=== PATIENT | male | born 1965 | race Caucasian/White ===

== ENCOUNTER → 2020-03-13 07:38 | Outpatient (CLI) | payer OTHER, SELFPAY ==
--- NOTE | 2020-03-13 | DI.MRI.S_ITS ---
PROCEDURE: MR SHOULDER RT WO CON INDICATIONS: Pain in right shoulder TECHNIQUE: Noncontrast oblique coronal T2 fast spin echo with fat saturation, oblique sagittal T1 spin echo and T2 fast spin echo with fat saturation, axial T1 spin echo and T2 fast spin echo with fat saturation through the shoulder. COMPARISON: None. FINDINGS: Image quality: Excellent. Rotator cuff: There is high-grade partial-thickness to full-thickness rupture involving anterior to mid fibers of distal supraspinatus at its insertion on the humeral head with up to 3 centimeter medial retraction of torn tendon fibers to the level of acromioclavicular joint. Most anterior fibers of distal supraspinatus and mid to posterior fibers of distal supraspinatus show low-grade articular surface partial-thickness tear. Distal infraspinatus tendinosis is seen. Distal subscapularis tendinosis and low-grade intrasubstance partial-thickness tear is also noted. Sagittal images demonstrate moderate supraspinatus muscle atrophy. Bones and bursae: No bone marrow contusions or fractures. Moderate acromioclavicular joint osteoarthritic changes are seen with downward osteophyte formation depressing the musculotendinous junction of supraspinatus.. There is moderate amount of subacromial subdeltoid bursal fluid. No gross intra-articular loose body. Capsule and soft tissues: In the absence of intra-articular contrast, focal area of signal abnormality and contour irregularity involving superior labrum at 12 o'clock position is seen suggestive of focal superior labral tear. The glenohumeral ligaments appear intact. The long head of the biceps tendinosis and moderate grade intrasubstance partial-thickness tear is seen. The rotator interval appears normal, without fibrosis. The coracohumeral ligament is normal in thickness. IMPRESSION: 1. Tendinosis and low to moderate grade articular surface partial thickness tear involving distal supraspinatus with suggestion of high-grade partial-thickness to full-thickness rupture involving anterior to mid fibers of distal supraspinatus at its insertion on the humeral head with up to 3 cm medial retraction of torn tendon fibers to the level of acromioclavicular joint. Moderate supraspinatus muscle atrophy. 2. Distal infraspinatus tendinosis. Distal subscapularis tendinosis and low-grade intrasubstance partial-thickness tear. Tendinosis and moderate grade partial-thickness tear involving proximal intra-articular portion of long head of biceps. 3. Moderate acromioclavicular joint osteoarthritis. 4. Suggestion of focal superior labral tear at 12 o'clock position. Dictated by: Rafat Griffin M.D. on 03/13/2020 at 9:44 Approved by: Rafat Griffin M.D. on 03/13/2020 at 9:48
== END ==
PROVIDERS: PCP Family Medicine; Referring Provider Family Medicine; Visit Provider Family Medicine
DX: M25.511 Pain in right shoulder (principal); M75.111 Incomplete rotator cuff tear or rupture of right shoulder, not specified as traumatic; M19.011 Primary osteoarthritis, right shoulder
CPT/HCPCS: 73221

== ENCOUNTER → 2020-10-24 15:36 | Outpatient (CLI) | payer OTHER, SELFPAY ==
--- NOTE | 2020-10-24 | DI.MRI.S_ITS ---
PROCEDURE: MR SHOULDER RT WO CON INDICATIONS: strain of muscle and tendon. Continued right bicep and tricep pain post injury TECHNIQUE: Noncontrast oblique coronal T2 fast spin echo with fat saturation, oblique sagittal T1 spin echo and T2 fast spin echo with fat saturation, axial T1 spin echo and T2 fast spin echo with fat saturation through the shoulder. COMPARISON: [facility] [place], CR, XR SHOULDER 2+ VIEWS RIGHT, 07/19/2020, 13:50. [facility], MR, MR SHOULDER RT WO CON, 03/13/2020, 7:58. FINDINGS: Image quality: Excellent. Rotator cuff: There is full-thickness tear of the supraspinatus tendon. There is mild tendon retraction and mild supraspinatus muscle atrophy. There is partial-thickness tear of the infraspinatus and subscapularis tendons. Sagittal images demonstrate no infraspinatus or subscapularis muscle atrophy. Bones and bursae: No bone marrow contusions or fractures. Moderate acromioclavicular and glenohumeral joint degeneration. The acromion demonstrates conventional anatomy, without an os acromiale. No pathologic subacromial-subdeltoid or subcoracoid bursal fluid is present. Capsule and soft tissues: In the absence of intra-articular contrast, there is degenerative fraying of the glenoid labrum. The long head of the biceps tendon demonstrates normal location and morphology. There is fluid within the tendon sheath of the long head of the biceps tendon consistent with tenosynovitis. The rotator interval appears normal, without fibrosis. The coracohumeral ligament is normal in thickness. IMPRESSION: 1. Full-thickness tear of the supraspinatus tendon. There is mild tendon retraction and mild supraspinatus muscle atrophy. 2. Partial-thickness tear of the infraspinatus and subscapularis tendons. 3. Moderate acromioclavicular and glenohumeral joint degeneration. 4. Degenerative fraying of the glenoid labrum. 5. Tenosynovitis of the long head of the biceps tendon. Dictated by: Sergio Evans M.D. on 10/24/2020 at 17:11 Approved by: Sergio Evans M.D. on 10/24/2020 at 17:29
== END ==
PROVIDERS: PCP Family Medicine; Referring Provider Orthopaedic Surgery; Visit Provider Orthopaedic Surgery
DX: S46.011A Strain of muscle(s) and tendon(s) of the rotator cuff of right shoulder, initial encounter (principal); M19.011 Primary osteoarthritis, right shoulder; M65.821 Other synovitis and tenosynovitis, right upper arm; X58.XXXA Exposure to other specified factors, initial encounter
CPT/HCPCS: 73221

== ENCOUNTER → 2020-12-16 09:01 | Outpatient (CLI) | payer OTHER, SELFPAY ==
[2020-12-16 12:09] LABS: COVID19 -Nasal RAPID Negative (Negative)
== END ==
PROVIDERS: PCP Family Medicine; Visit Provider Physician Assistant
DX: Z01.812 Encounter for preprocedural laboratory examination (principal); Z20.822 Contact with and (suspected) exposure to COVID-19
CPT/HCPCS: 87635

== ENCOUNTER 2020-12-18 06:13 | Day surgery (SDC) | payer OTHER, SELFPAY ==
[2020-12-14 10:56] VITALS: BMI 37.4
[2020-12-18] VITALS (9 sets, daily range): BP systolic 131–164; BP diastolic 55–95; PULSE 52–66; RESP 12–14; TEMP 36.2–37.2; O2SAT 92–98; BMI 37.4
[2020-12-18] MEDS: LACTATED RINGERS 1,000 ML 42 ML IV (06:53)
--- NOTE | 2020-12-18 07:18 | P.HP_ITS ---
History of Present Illness History of Present Illness Date Patient Seen: 12/18/20 Time Patient Seen: 07:18 Chief complaint: RIGHT SHOULDER Narrative: The patient is a 55 year old gentleman with right shoulder pain and an MRI that confirms a rotator cuff tear with some retraction and atrophy. This is an interim history and physical exam as the prior H and P was completed on November 02. The patient confirms he has had no changes in his health status. Please refer to the prior history and physical for details. Patient History Medical History HLD (hyperlipidemia) HTN (hypertension) Surgical History (Updated 12/18/20 @ 07:21 by Andrea Kaminski MD) H/O vasectomy Hx of appendectomy Family & Social History Family History (Updated 12/18/20 @ 07:22 by Andrea Kaminski MD) Other COPD (chronic obstructive pulmonary disease) Diabetes mellitus Social History: household members family Tobacco & Substance use: Smoking Status Never smoker alcohol intake frequency a few times a week Substance Use Type does not use Meds Home Medications and Allergies Home Medications Medication Instructions Recorded Confirmed Type lisinopril [Zestril] 10 mg PO QDAY #0 06/14/11 12/18/20 History simvastatin [Zocor] 20 mg PO HS #0 06/14/11 12/18/20 History Allergies Allergy/AdvReac Type Severity Reaction Status Date / Time No Known Drug Allergies Allergy Verified 12/18/20 06:42 Review of Systems Review of Systems ROS: Yes All systems reviewed with the patient and are negative except as otherwise documented Exam Vital Signs (past 8 hours): - 12/18/20 06:45 Temperature 99 F Pulse Rate 66 Respiratory Rate 13 Blood Pressure 164/95 H Pulse Oximetry 98 Oxygen Delivery Method Room Air Narrative Exam Narrative: The patient is lying comfortably in his gurney. The right upper extremity shows no skin lesions that would prevent surgery. The remainder of the physical exam is as per his prior history and physical note. Assessment & Plan Assessment & Plan narrative: Right rotator cuff tear of moderate chronicity and size which also may involve some biceps instability. He has given his consent for arthroscopic rotator cuff repair, biceps tenodesis and subacromial d ecompression is indicated. Risks benefits and alternatives of surgery were reviewed with him in the preoperative area to remind him of the discussion that was had previously in the office.
[2020-12-18] MEDS: CELECOXIB 200 MG CAPSULE 400 MG PO (07:33)
[2020-12-18] MEDS: ACETAMINOPHEN 325 MG TABLET 975 MG PO (07:34)
[2020-12-18] MEDS: GABAPENTIN 300 MG CAPSULE PO (07:34)
--- NOTE | 2020-12-18 07:43 | SUR.PREOP ---
to bedside with Dr Spears for nerve block
--- NOTE | 2020-12-18 07:47 | SUR.PREOP ---
Time out verified with Dr Prachi Spears. Pt AOx4.
--- NOTE | 2020-12-18 08:18 | PM.PROC.1 ---
Procedures Date/Time Date of procedure: 12/18/20 Time of procedure: 07:51 Nerve Block Time out performed: Yes Nerve blocks: brachial plexus (intrascalene) Procedure successful: Yes Patient tolerated procedure: well and no complications Complications: none Additional comments: Intrascalene block performed for post-op pain control at surgeon request. Patient was positioned with IV, O2, monitors and rescue meds available. Prepped and timeout performed. Target identified with continuous ultrasound guidance. 15 mL of bupivicaine 0.5% was injected perineurally with intermittent aspiration and injection. No blood, no paresthesias, no acute complications.
--- NOTE | 2020-12-18 08:30 | SUR.OPER ---
Lateral on padded OR bed with archuleta bag positioner, head on pillow, gel axillary roll in place, bottom leg bent with gel pad under knee to foot, upper leg straight and supported with pillows. Operative arm secured in shoulder positioning suspension device. non-operative arm secured on padded arm board. Safety belt at hip, tape over blanket securing lower legs.
[2020-12-18] MEDS: CEFAZOLIN 1 GM VIAL IV (08:37)
[2020-12-18] MEDS: BUPIVACAINE 0.5% W/ EPI (PF) 30 ML VIAL INJ (08:38)
[2020-12-18] MEDS: SODIUM CHLORIDE IRRIG SOLUTION 3,000 ML, EPINEPHrine 1 MG IRR (08:40)
[2020-12-18] MEDS: fentaNYL 100 MCG/2 ML INJ IV (09:42)
--- NOTE | 2020-12-18 09:45 | PM.OP.1 ---
Operative Date/Time/Diagnoses Date of procedure: 12/18/20 Time of procedure: 09:45 Pre-op diagnosis: Right shoulder rotator cuff tear Post-op diagnosis: same Procedure & Clinicians Procedure: Arthroscopic rotator cuff repair of right shoulder. Same procedure as scheduled: Yes Indications: The patient is a 55-year-old gentleman who has had right shoulder pain and an MRI that shows a chronic large rotator cuff tear. He has agreed to surgery after discussion of the risks benefits and alternatives. Risks discussed included but were not limited to: Failure to improve, stiffness, infection, nerve damage, deep venous thrombosis, pulmonary embolism, stroke, myocardial infarction, aspiration pneumonia, permanent paralysis and . Surgeon: Andrea Kaminski Seed Cleaning Manager: Otto Malone Click Yes if Unassisted: No Anesthesia Type: General, Peripheral nerve block and Local Operative Notes Findings: 1. Normal glenohumeral cartilage 2. Normal glenohumeral labrum 3. Normal glenohumeral ligaments 4. Normal subscapularis 5. Biceps tendon slightly flattened and widened with minimal fraying and an intact origin. 6. Completely torn supraspinatus with significant retraction to the glenoid rim and posteriorly. 7. Tearing of the anterior infraspinatus. 8. Normal axillary pouch. 9. Large rotator cuff tear evident on the bursal surface with fibrofatty tissue in the bursa 10. Type 2 acromion with no significant impingement lesion 11. Acromioclavicular joint not opened due to lack of preoperative symptoms. 12. Examination under anesthesia notable for full range of motion and no evidence for pathologic laxity. Closure Type: primary Specimen(s): none sent Prosthetic devices, grafts, tissues, transplants, or devices: Two Mitek Healix BR anchors 5.5 mm diameter, one knotless and one triple threaded Applied: implant(s) Estimated Blood Loss (mL): 10 Blood products transfused: none Procedure in detail: The patient was seen in the preoperative area where he identified his right shoulder as the operative site and this was marked with my initials. He received preoperative antibiotics and underwent the induction of an interscalene block. He was taken to the operating room and placed on the operating room table in a supine position where he underwent induction of general anesthetic. He was then repositioned in the left lateral decubitus position after exam of his shoulder under anesthesia. He was stabilized in this position using the archuleta bag and all pressure points were padded as well as an axillary roll being used. A timekeeping supervisor-out was performed. The right arm was prepared from the fingertips to the base of the neck with ChloraPrep in the usual fashion and draped through sterile drapes. The arm was placed in 10 lb of balanced skin suspension. The subcutaneous landmarks were outlined on the skin with a marking pen. Portal sites were selected. The posterior portal was created and the arthroscope inserted into the glenohumeral joint. Diagnostic arthroscopy ensued with the result given above. With the scope in the glenohumeral joint I created a lateral portal in the subacromial bursa and inserted a grasper to assess rotator cuff mobility. It did not appear to be very mobile. The arthroscope was then withdrawn and placed in the subacromial bursa. The fibrofatty tissue of the bursa was excised. The edges of the rotator cuff tear were carefully identified and from the overlying bursa. I released the capsule underlying the rotator cuff and extensively debrided the scarring and bursal attachments above the cuff. We reassessed mobility and then found that a [id number] repair would likely allow mobilization of the cuff to the greater tuberosity. A suture was placed from the rotator interval tissue to the posterior aspect of the cuff tear and tied. This partially advanced the cuff anteriorly. The greater tuberosity was prepared to bleeding bone. An anchor was placed in the posterior aspect of the greater tuberosity and 3 sutures were placed into the posterior leaflet from this anchor. A suture tape was then placed from the lateral aspect of the rotator interval tissue just above the biceps to the posterior leaflet as well and the after tying 2 of the 3 posterior sutures the tape was then placed through a knotless anchor to completely bring the cuff tear down into the greater tuberosity. The final suture was then tied to complete the repair. The integrity of the repair was confirmed from the posterior and the lateral views. At this point all arthroscopic equipment was removed. The wounds were closed with 4-0 Monocryl and Steri-Strips. Additional 0.25% Marcaine was injected into the subcutaneous tissues for postoperative pain control. The patient's wounds were dressed with sterile 4x4s, an ABD and an adhesive dressing. His arm was placed in a sling and he was transported to the recovery room in good condition having tolerated procedure well. Complications: none Post-operative Condition: stable Disposition: PACU Plan for aftercare: The patient will be discharged today. He will be maintained on a standard large size rotator cuff tear protocol with 8 weeks of passive range of motion.
[2020-12-18] MEDS: OXYCODONE IR 5 MG TABLET PO (09:59)
== END 2020-12-18 10:35 | disposition home or self-care (01) ==
PROVIDERS: PCP Family Medicine; Referring Provider Orthopaedic Surgery; Visit Provider Orthopaedic Surgery
PROC: (CPT 29827; principal; 2020-12-18 07:45)
DX: S46.011A Strain of muscle(s) and tendon(s) of the rotator cuff of right shoulder, initial encounter (principal); M75.21 Bicipital tendinitis, right shoulder; I10 Essential (primary) hypertension; E78.5 Hyperlipidemia, unspecified; W01.198S Fall on same level from slipping, tripping and stumbling with subsequent striking against other object, sequela
CPT/HCPCS: 29827; 64450; C1776; J0171; J0690; J1100; J2405; J2704; J3010

== ENCOUNTER 2021-04-24 16:04 | Emergency (ER) | payer OTHER, SELFPAY ==
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
[2021-04-24 16:19] LABS: Add Manual Diff / Slide Review NO; Basophils Absolute Auto 100 /uL (0-100); Basophils Percent Auto 1.3 % (0-2); Eosinophils Absolute Auto 300 /uL (0-450); Eosinophils Percent Auto 4.5 % (2-4); Hematocrit 39.8 % (41-53); Hemoglobin 13.2 g/dL (13.5-17.5); Lymphocytes Absolute Auto 2000 /uL (1100-4500); Lymphocytes Percent Auto 31.7 % (25-40); Mean Corpuscular HGB Conc 33.1 % (30-36); Mean Corpuscular Hemoglobin 27.8 PG (26-34); Mean Corpuscular Volume 83.9 fL (80-100); Monocytes Absolute Auto 600 /uL (0-900); Monocytes Percent Auto 9.9 % (3-14); Neutrophils Absolute Auto 3300 /uL (1500-7000); Neutrophils Percent Auto 52.6 % (50-75); Platelet Count 304 X10^3/uL (150-400); Red Blood Cell Count 4.74 X10^6/uL (4.5-5.9); Red Cell Distribution Width 14.4 % (11.6-14.8); White Blood Cell Count 6.4 X10^3/uL (4.5-11.0)
[2021-04-24 16:26] VITALS: PULSE 58; RESP 22; O2SAT 99
[2021-04-24 16:29] VITALS: BP 166/79; PULSE 61; RESP 22; O2SAT 99
[2021-04-24 16:30] VITALS: BP 174/82; PULSE 60; RESP 15; O2SAT 99
[2021-04-24 16:32] LABS: Alanine Aminotransferase 36 IU/L (<50); Albumin 4.3 g/dL (3.5-5.0); Albumin Globulin Ratio 1.4 (1.0-2.8); Alkaline Phosphatase 73 U/L (38-126); Aspartate Aminotransferase 42 IU/L (17-59); Bilirubin Total 0.3 mg/dL (0.2-1.3); Blood Urea Nitrogen 18 mg/dL (9-20); Calcium 9.1 mg/dL (8.4-10.2); Carbon Dioxide 28 mmol/L (22-32); Chloride 104 mmol/L (98-107); Creatine Kinase 324 U/L (55-170); Estimated Glomerular Filt Rate > 60.0 mL/min (>60); Glucose 101 mg/dL (70-100); HEMOLYSIS < 15 (0-50); Lipase 42 U/L (23-300); Potassium 3.8 mmol/L (3.4-5.1); Sodium 137 mmol/L (137-145); Total Protein 7.3 g/dL (6.3-8.2)
[2021-04-24 16:44] LABS: Troponin I < 0.012 ng/mL (0.01-0.034)
[2021-04-24 16:47] LABS: CKMB % Relative Index 1.7 % (1.5-5.0); Creatine Kinase MB 5.49 ng/mL (<2.37)
--- NOTE | 2021-04-24 16:55 | PC.NURSE ---
C Collar removed. Cleared by Dr Hayes.
[2021-04-24 17:00] VITALS: PULSE 66; RESP 18; O2SAT 99
[2021-04-24 17:01] VITALS: BP 184/82; PULSE 60; RESP 15; O2SAT 99
[2021-04-24] MEDS: ACETAMINOPHEN 325 MG TABLET 650 MG PO (17:04)
[2021-04-24 18:05] LABS: Bacteria Urine None Seen; Culture Indicated Urine Cult Not Indicated; RBC Urine 0-1/HPF (0-5/HPF); Squamous Epithelial Cell Urine 0-1 /HPF (0-5/HPF); WBC Urine 0-1/HPF (0-5/HPF)
== END 2021-04-24 17:43 | disposition home or self-care (01) ==
PROVIDERS: Emergency Provider Emergency Medicine; PCP Family Medicine
DX: S20.211A Contusion of right front wall of thorax, initial encounter (principal); M25.511 Pain in right shoulder; N28.89 Other specified disorders of kidney and ureter; V89.2XXA Person injured in unspecified motor-vehicle accident, traffic, initial encounter
CPT/HCPCS: 70450; 71045; 71260; 72125; 72170; 74177; 80053; 81003; 81015; 82550; 82553; 83690; 84484; 85025; 93005; 93010; 99284; 99291; G0390; Q9967

== ENCOUNTER → 2021-05-18 07:40 | Outpatient (CLI) | payer OTHER, SELFPAY ==
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
== END ==
PROVIDERS: PCP Family Medicine; Referring Provider Physician Assistant Medical; Visit Provider Physician Assistant Medical
DX: S46.011A Strain of muscle(s) and tendon(s) of the rotator cuff of right shoulder, initial encounter (principal); M19.011 Primary osteoarthritis, right shoulder; M25.461 Effusion, right knee
CPT/HCPCS: 73221

== ENCOUNTER → 2021-11-24 11:04 | Outpatient (CLI) | payer OTHER, SELFPAY ==
--- NOTE | 2021-11-24 | DI.MRI.S_ITS ---
PROCEDURE: MR THORACIC SPINE WO CON INDICATIONS: Cervicalgia;Other fatigue TECHNIQUE: Noncontrast sagittal T1 spine echo and T2 fast spin echo, sagittal STIR, axial T1 and T2 fast spin echo through the thoracic spine. COMPARISON: None. FINDINGS: Image quality: Excellent. Alignment and Curvature: There is mild diffuse thoracic kyphosis and otherwise normal bony alignment. Bone Marrow: Marrow is of normal overall signal. No acute vertebral body compression fractures. There is minimal reactive signal throughout the endplates of the thoracic spine. Spinal Cord: Visualized spinal cord is normal in size and signal. Paraspinous Soft Tissues: No paravertebral masses. Disc space levels: At T8-T9, there is mild diffuse disc bulge causing minimal canal stenosis. No foraminal stenosis. No significant canal, or foraminal stenosis throughout the remaining thoracic spine. IMPRESSION: 1. Multilevel degenerative disc disease. No significant canal, or foraminal stenosis. No neural impingement. Dictated by: Bailee Mcdonnell M.D. on 11/26/2021 at 8:56 Approved by: Bailee Mcdonnell M.D. on 11/26/2021 at 8:58
--- NOTE | 2021-11-24 | DI.MRI.S_ITS ---
PROCEDURE: MR CERVICAL SPINE WO CON INDICATIONS: Cervicalgia;Other fatigue TECHNIQUE: Noncontrast sagittal T1 spin echo and T2 fast spin echo, sagittal STIR, foraminal oblique sagittal T2 fast spin echo, and axial gradient echo or T2 fast spin echo through the cervical spine. COMPARISON: [facility], CT, CT CERVICAL SPINE WO CON, 04/24/2021, 16:13. FINDINGS: Image quality: Excellent. Alignment and Curvature: There is trace retrolisthesis of C5 on C6. Bone Marrow: Marrow demonstrates normal overall signal. Mild reactive endplate changes are present C5-6. Spinal Cord: Visualized spinal cord has normal size and signal. No cerebellar tonsillar herniation. Paraspinous Soft Tissues: No paravertebral masses. Prevertebral soft tissues are normal in thickness. Discs: Severe desiccation is present at C5-6. C2-C3: Mild disc bulge without spinal stenosis. Severe bilateral foraminal narrowing with uncovertebral hypertrophy. C3-C4: Mild disc bulge with mild spinal stenosis. Severe bilateral foraminal narrowing with uncovertebral hypertrophy. C4-C5: Mild disc bulge with minimal canal narrowing. Severe bilateral foraminal narrowing with uncovertebral hypertrophy. C5-C6: Mild disc bulge with moderate to severe spinal stenosis. Severe bilateral foraminal narrowing with uncovertebral hypertrophy. C6-C7: Mild disc bulge with mild spinal stenosis. Moderate to severe bilateral foraminal narrowing with uncovertebral hypertrophy. C7-T1: Mild disc bulge without spinal stenosis. Foramina are partially obscured secondary to motion. There is likely at least mild bilateral foraminal narrowing, left greater than right. IMPRESSION: Multilevel disc bulges. Multilevel severe foraminal narrowing with uncovertebral arthropathy. Multilevel spinal stenosis most severe at C5-6 secondary to disc bulges with contributing effect of retrolisthesis. Dictated by: Nubia Rodriguez M.D. on 11/26/2021 at 10:10 Approved by: Nubia Rodriguez M.D. on 11/26/2021 at 10:15
== END ==
PROVIDERS: PCP Family Medicine; Referring Provider Family Medicine; Visit Provider Family Medicine
DX: M51.34 Other intervertebral disc degeneration, thoracic region (principal); M50.21 Other cervical disc displacement, high cervical region; M47.812 Spondylosis without myelopathy or radiculopathy, cervical region; M48.02 Spinal stenosis, cervical region; R53.83 Other fatigue
CPT/HCPCS: 72141; 72146

== ENCOUNTER → 2023-06-12 08:52 | Outpatient (CLI) | payer OTHER, SELFPAY ==
[2023-06-12 10:22] LABS: Add Manual Diff / Slide Review NO; Basophils Absolute Auto 100 /uL (0-100); Basophils Percent Auto 0.9 % (0-2); Eosinophils Absolute Auto 100 /uL (0-450); Eosinophils Percent Auto 1.5 % (2-4); Hematocrit 41.4 % (41-53); Hemoglobin 13.7 g/dL (13.5-17.5); Lymphocytes Absolute Auto 1700 /uL (1100-4500); Lymphocytes Percent Auto 25.4 % (25-40); Mean Corpuscular HGB Conc 33.1 % (30-36); Mean Corpuscular Hemoglobin 27.3 PG (26-34); Mean Corpuscular Volume 82.6 fL (80-100); Monocytes Absolute Auto 600 /uL (0-900); Neutrophils Absolute Auto 4300 /uL (1500-7000); Neutrophils Percent Auto 63.2 % (50-75); Platelet Count 338 X10^3/uL (150-400); Red Blood Cell Count 5.02 X10^6/uL (4.5-5.9); Red Cell Distribution Width 14.9 % (11.6-14.8); White Blood Cell Count 6.8 X10^3/uL (4.5-11.0)
[2023-06-12 10:25] LABS: Albumin 4.4 g/dL (3.5-5.0); BUN Creatinine Ratio 17.9 (6-22); Blood Urea Nitrogen 26 mg/dL (9-20); Calcium 10.4 mg/dL (8.4-10.2); Carbon Dioxide 31 mmol/L (22-32); Chloride 99 mmol/L (98-107); Estimated Glomerular Filt Rate 55 mL/min (>60); Glucose 99 mg/dL (80-110); HEMOLYSIS < 15 (0-50); Potassium 5.3 mmol/L (3.4-5.1); Sodium 136 mmol/L (137-145)
[2023-06-12 10:33] LABS: Prealbumin 25.1 mg/dL (17.6-36.0)
[2023-06-12 10:43] LABS: Vitamin D 25 Hydroxy (D3) 40.6 ng/mL (30.0-100.0)
== END ==
PROVIDERS: PCP Family Medicine; Referring Provider Orthopaedic Surgery Adult Reconstructive Orthopaedic Surgery; Visit Provider Orthopaedic Surgery Adult Reconstructive Orthopaedic Surgery
DX: E55.9 Vitamin D deficiency, unspecified (principal); Z01.818 Encounter for other preprocedural examination; R73.9 Hyperglycemia, unspecified; Z01.812 Encounter for preprocedural laboratory examination
CPT/HCPCS: 36415; 80048; 82040; 82306; 83036; 84134; 85025; 93005

== ENCOUNTER 2023-07-23 06:14 | Day surgery (SDC) | payer OTHER, SELFPAY ==
[2023-07-17 08:27] VITALS: BMI 36.6
[2023-07-23] VITALS (8 sets, daily range): BP systolic 98–145; BP diastolic 61–82; PULSE 53–78; RESP 13–18; TEMP 36.6–36.8; O2SAT 92–97; BMI 36.6
[2023-07-23] MEDS: LACTATED RINGERS 1,000 ML 42 ML IV (07:06)
--- NOTE | 2023-07-23 07:16 | DI.RAD.S_ITS ---
PROCEDURE: XR KNEE RT 1TO2V INDICATIONS: TKA TECHNIQUE: 2 view(s) of the knee acquired. COMPARISON: None. FINDINGS: Bones: Patient is status post knee joint arthroplasty. Hardware components are in expected positions. Visualized bony structures are intact. Knee arthroplasty has been performed. Soft tissues: Overlying postoperative changes are noted. IMPRESSION: Expected post-operative appearance of a knee arthroplasty. Dictated by: Bailee Mcdonnell M.D. on 07/23/2023 at 10:52 Approved by: Bailee Mcdonnell M.D. on 07/23/2023 at 10:52
[2023-07-23] MEDS: ACETAMINOPHEN 325 MG TABLET 975 MG PO (07:26)
--- NOTE | 2023-07-23 07:32 | PM.PREOP ---
Pre-operative Note Interval Note History & Physical reviewed/Exam performed by Physician: Yes Changes to H&P: No
[2023-07-23] MEDS: CEFAZOLIN 2 GM/100 ML PREMIX 100 ML IV (08:00)
--- NOTE | 2023-07-23 08:29 | SUR.OPER ---
Supine on padded OR bed, head on pillow, arms secured on padded arm boards at <90 degrees abduction, legs uncrossed, safety belt at thigh, tape over blanket over lower legs. OPERATIVE LEG DRAPED FREE ON FIELD
[2023-07-23] MEDS: TRANEXAMIC ACID 1,000 MG VIAL 2000 MG INJ (08:39)
[2023-07-23] MEDS: ROPIVACAINE/EPI/CLONIDINE/KET 50 ML SYRINGE INJ (08:40)
[2023-07-23] MEDS: TRIAMCINOLONE 40 MG/ML VIAL INTRA-ARTI (09:26)
[2023-07-23] MEDS: LIDOCAINE 1% 20 ML INJ (09:27)
--- NOTE | 2023-07-23 10:19 | P.OP_ITS ---
Operative Date/Time/Diagnoses Date of procedure: 07/23/23 Pre-op diagnosis: Right knee arthritis Post-op diagnosis: same Procedure & Clinicians Procedure: Right total knee arthroplasty (62538) Same procedure as scheduled: Yes Surgeon: [facility] Plan Administrator: Otto Malone Anesthesia Type: Spinal, Peripheral nerve block and Local Operative Notes Procedure in detail: Implants: Dayron Persona Medial Congruent Total Knee Arthroplasty: * Size 11 Cruciate Retaining Femoral Component * Size F Tibial Component with 14 x 30 stem extension * Size 13 Medial Congruent Polyethylene Insert * Unresurfaced Patella Procedure Summary: 58-year-old male with a varus knee. He had significant tightness medially following distal femoral and proximal tibial cuts so I performed a posterior medial release. This reduced the medial tightness from 7-3. I therefore move forward with the remainder of the case and planned to perform a medial reduction osteotomy at the conclusion of the case. I downsized his tibia from a G to an F to allow for a medial reduction osteotomy and this improved some of the residual medial tightness he had at that point. Procedure in Detail: This patient was seen preoperatively and evaluated for knee pain which was refractory to numerous nonoperative treatment modalities. Their hip pain correlated with radiographic changes demonstrating significant degeneration in the knee joint. The risks and benefits of continued nonoperative management versus operative management were discussed at length and all of the patient?s questions were answered. Additional educational materials providing further details beyond our discussion in clinic were provided via a publicly available patient education video which included the incidence of medical complications associated with total knee arthroplasty, reasons for revision following total knee arthroplasty, and patient satisfaction rates following total knee arthroplasty. That video can be accessed at [email or web address] . With this understanding of the risks inherent to the procedure, the patient elected to move forward with operative management. Following preoperative optimization, the patient was scheduled for surgery. The patient was met in the preoperative holding area the day of the procedure and all questions were answered. The patient?s nares were swabbed with betadine in order to decolonize them from MRSA. Informed consent was signed and the operative limb was marked with indelible ink.? The patient was brought back to the operating room where anesthesia was induced. The patient was transferred to the operating table and all bony prominences were padded. The operative site was prepped and draped in the usual sterile fashion. A second prep stick was utilized following drape placement. The incision was marked corresponding to the medial aspect of the tibial tubercle and the patella. Ioban was wrapped circumferentially around the knee. Prior to incision, tranexamic acid and cefazolin were administered. Templating images were displayed. A timeout procedure was performed verifying the patient?s identity, medical comorbidities, allergies, relevant medications, anesthesia type and the surgical plan. All present were in agreement. The assistance of a physician front office medical assistant was required for positioning, room setup, soft tissue retraction and wound closure. Without this assistance, the procedure would have been significantly more challenging and time consuming.?? The tourniquet was inflated prior to incision. I made an anterior incision over the knee, dissected through the subcutaneous tissues and identified the lateral border of the VMO. Medial and lateral soft tissue flaps were developed. A medial parapatellar arthrotomy was performed ensuring that adequate capsular tissue would remain for closure at the conclusion of the procedure. The hip was brought into extension and the medial soft tissues were released off the joint line of the tibia. Tissue overlying the distal anterior femur was released to allow for later assessment for anterior notching but left in place. A portion of the retropatellar fat pad was excised while protecting the patellar tendon. The patella was everted. The patella was not resurfaced. Osteophytes were excised and a lateral facetectomy was performed. The patella was released from its dean ed position.?? I flexed the knee to 90 degrees and placed retractors to allow access to the notch. An opening reamer was used to gain access to the femoral canal and an intramedullary shen was introduced into the canal. Diaphyseal fit was obtained in order to allow a distal femoral resection at 5 degrees relative to the anatomic axis, thereby aiming to achieve mechanical alignment of the eventual implant. A +2 resection was planned and assessed using an nilson wing. I then made the cut using a sagittal saw. This provided additional access to the femoral notch. The ACL and PCL were excised. Retractors were placed on the lateral and medial tibia. I hyperflexed the knee while externally rotating it to sublux the tibia anteriorly. I placed a PCL retractor posteriorly and used this to provide add itional anterior subluxation. The remainder of the PCL root was released. An extramedullary guide was positioned to allow a resection perpendicular to the anatomic and mechanical axes of the tibia, thereby aiming to achieve mechanical alignment of the eventual implant. A +4 resection off the medial tibia] was planned and the tibial cutting jig was pinned in place. I evaluated the cut depth, varus-valgus alignment and slope of the planned tibial resection and deemed them satisfactory. I cut the tibia with a sagittal saw while using retractors to protect the MCL, patellar tendon, and posterolateral structures.? The knee was repositioned in extension and the Fuzion soft tissue balancing gauge was introduced. This demonstrated that there was 7 of tightness medially. I therefore moved to flexion and performed a posterior medial release. I also removed some osteophytes off of the tibia. This improved the tightness from 7 to 3. I therefore move forward with the procedure and plan to perform a medial reduction osteotomy after my posterior femoral cuts. When 60 pounds of force was applied to the Fuzion device, the extension gap opened to 10 mm. I moved the knee into 90 degrees of flexion, and the Fuzion device was recalibrated by removing a 9 mm [place] to allow assessment of the flexion gap. The Fuzion was placed perpendicular to the resected surface of the tibia and the resected s urface of the distal femur. Sixty pounds of traction was applied to match the tension of the extension gap. This externally rotated the femur to 3 degrees. Pins were placed in the 10 mm holes. The measured resection guide was placed over the pins to allow sizing. Appropriate sizing was determined and a 4-in-1 block was placed. This was double checked using the Fuzion device to ensure that it would open to an equal distance as the extension gap when the same amount of force was applied. The Fuzion block was also used to assess flexion gap symmetry. An nilson wing was used to ensure there would be no anterior notching. Retractors were placed to protect the soft tissues during resection. Captured cuts were performed with a sagittal saw for the anterior and posterior femur as well as the corresponding chamfers.? Trial components were placed and the construct was assessed. Range of motion was assessed by ensuring the knee could achieve full extension and assessing maximum passive knee flexion by elevating the femur and allowing the heel to passively fall towards the buttock. Gap symmetry was assessed by stressing the medial and lateral compartments in both extension and flexion. Laxity was assessed in both extension and flexion and the polyethylene trial was adjusted with shims as necessary. Patellar tracking was assessed with knee flexion. Once satisfied with the construct, I moved forward with implant insertion. Lug holes were drilled in the femur and the tibia was prepped ensuring appropriate sizing and rotation relative to the tibial tubercle.?? The bony ends were irrigated and cement was prepared. Portions of the anterior chamfer cut were utilized as cement restrictors in the femur and tibia where intramedullar rods had been utilized. Cement was placed on the entirety of the undersurface of both the tibial and femoral components. Cement was placed onto the dry tibia and pressurized into the cancellous bone. I impacted the tibial component into place. Cement was removed. The tibia was reduced underneath the femur and placed cement onto the dry surface of the resected femur. I placed the femoral component as well as the intended polyethylene trial. Cement was removed from around the femur. I brought the knee into extension and manually pressurized the construct by pushing on the heel while the cement dried. The knee was bathed in a dilute mixture of betadine and peroxide. A mixture of Ropivacaine, Epinephrine, Clonidine and Toradol was infiltrated throughout the soft tissues into structures including the VMO, patellar tendon, quadriceps tendon, MCL and femoral periosteum. A low adductor canal block was also performed using this mixture unless one had been placed preoperatively by anesthesia. The knee was copiously irrigated with pulse lavage. Once cement had been allowed to dry the knee was again trialed. Range of motion was assessed by ensuring the knee could achieve full extension and assessing maximum passive knee flexion by elevating the femur and allowing the heel to passively fall towards the buttock. Gap symmetry was assessed by stressing the medial and lateral compartments in both extension and flexion. Laxity was assessed in both extension and flexion and the polyethylene trial was adjusted with shims as necessary. Patellar tracking was assessed with knee flexion. The tourniquet was let down and the polyethylene trial was removed. I inspected the knee inspected for excess cement and any residual bleeding. Once hemostasis was achieved I inserted the final polyethylene and ensured appropriate engagement of the dovetail locking mechanism.?? The arthrotomy was closed with absorbable interrupted suture ensuring that this extended to the top of the arthrotomy. This was backed up with running barbed suture throughout the arthrotomy. The skin was closed with 2-0 and 3-0 sutures. Surgical glue was applied and a soft dressing was placed.?The sponge, instrument and needle counts were reported as being correct at the end of the case.??No obvious complications occurred. The patient was transferred from the operating table back to a stretcher. The patient emerged from anesthesia without difficulty and was taken to the PACU in a stable condition.? 40 mg of Kenalog was injected into the contralateral knee through a superolateral injection site. Plan for aftercare: * Transfer to floor following recovery in PACU * Transition from hospital gown to regular clothing immediately upon arrival on floor * Weightbearing as tolerated * Mobilization as soon as the patient has recovered from anesthesia. If physical therapists are unavailable at the time the patient is ready to ambulate, then nursing staff should help patient ambulate * [Aspirin 81 twice per day] for DVT prophylaxis * Multimodal pain regimen with no IV opioids ordered * Anticipate mobilization with physical therapy today and discharge home either later today or tomorrow morning * Follow up at [facility] in 2 weeks * Detailed postoperative instructions available at [email or web address]
[2023-07-23] MEDS: IBUPROFEN 400 MG TABLET PO ×2 (11:40→14:29)
[2023-07-23] MEDS: ACETAMINOPHEN 325 MG TABLET 650 MG PO (11:41)
[2023-07-23] MEDS: LACTATED RINGERS 1,000 ML 100 ML IV (11:41)
--- NOTE | 2023-07-23 12:55 | PT.IIE ---
Current Diagnoses Unilateral primary osteoarthritis, right knee (07/23/23) Surgery Performed Operation Date: 07/23/23 07:45 Actual Procedures p Total Knee Arthroplasty, left knee corticosteroid injection(Right) - Rickie Gentile MD Surgical History (Last Updated 07/17/23 @ 09:06 by Maye Watson, RN) H/O right nephrectomy (10/2021) H/O vasectomy Hx of appendectomy Hx of repair of right rotator cuff (12/18/20) Medical History (Last Updated 07/17/23 @ 09:33 by Maye Watson RN) Cancer of kidney (2021) HLD (hyperlipidemia) HTN (hypertension) LIVIA on CPAP RBBB (right bundle branch block) Physical Therapy Inpatient Evaluation/Re-Eval M1 PT/OT-IP Prior Functional Status Start: 07/23/23 13:49 Freq: NEEDED Status: Active Protocol: Document 07/23/23 12:55 AB (Rec: 07/23/23 14:03 AB [id number]) Medical Review Prior Functional Status Medical History Reviewed Yes Communication able to make needs known Mobility and Gait pt stated that he was independent with all mobilities and ambulation wihtout AD Social History Household Members none Living Arrangements House Number of Floors (Floors) One Floor Number of Stairs To Enter/Railing? 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 Current Condition Start: 07/23/23 13:49 Freq: NEEDED Status: Active Protocol: Document 07/23/23 12:55 AB (Rec: 07/23/23 14:03 AB [email or web address]) Physical Therapy Current Condition Current Condition Evaluation Date 07/23/23 Treatment Diagnosis s/p R TKA; difficulty in walking Onset Date 07/23/23 M3 PT-IP Subjective Start: 07/23/23 13:49 Freq: NEEDED Status: Active Protocol: Document 07/23/23 12:55 AB (Rec: 07/23/23 14:03 AB [email or web address]) Subjective Physical Therapy Visit Type Type Initial Evaluation Visit Start Time 12:55 Visit Stop Time 13:35 Total Visit Minutes 40 Number of INSPECTOR PACKER Visits 0 Physical Therapy Visit Comments Patient Comments agreeable to do PT Therapy Pain Assessment Pain When Pain Assessed At Rest Pain Present Pain Present Pain Reported Location right knee Intensity 1 Scale Used Numeric (0 - 10) Pain Management Techniques Apply Cold,Distraction, Elevation,Modification of Treatment,Re-positioning, Timing of Activity with Medications M4 PT-IP Mobility and Gait Start: 07/23/23 13:49 Freq: NEEDED Status: Active Protocol: Document 07/23/23 12:55 AB (Rec: 07/23/23 14:03 AB [id number]) PT-Bed Mobility Assessment Supine to Sit Supine to Sit Standby Assistance PT-Transfer Assessment Sit to and From Stand Sit to and from Stand Standby Assistance,Contact Guard Assistance,1 Person Assistance,Use of Upper Extremities Equipment Transfer Assistive Device Gait Belt,Front Wheeled Walker Orthotic/Prosthetic Devices or Brace: No Transfers Transfer Destination Chair Transfer Technique ambulated Transfer Ability Level of Assist Standby Assistance,Contact Guard Assistance,1 Person Assistance,Use of Upper Extremities Comments Mobility Comments pt supine in bed and agreeable to do PT. obtained PLOF and home set up. post-op folder provided and reviewed contents . educated on HEP and WBAT on RLE. BP in supine: 144/74. O2 sat at RA 98%. R heel slides completed prior to mobility. pt completed supine to sit SBA. able to sit on EOB SBA. no c/o dizziness. BP checked: 144/73 . pt requested to use the toilet. completed sit to stand CGA and ambulated to the toilet using FWW CGA. cued for R quads contraction. able to stand using fWW CGA for safety while using the toilet. pt ambulated out from the toilet using FWW SBA to CGA and sat on the chair. pt agreed to do stairs. educated pt on car transfers and stair climbing techniques. pt completed sit to stand from the chair SBA and ambulated towards the platform step using FWW SBA to CGA. completed up/down platform step using FWW CGA and cues. pt ambulated in the hallway using FWW ~ 75 ft SBA to CGA. completed up/down step again SBA to CGA without cues needed . pt ambulated back to his room and sat on the chair. positioned pt on the chair. call light and table placed within reach. pt stated that he can instruct his daughter on how to assist him. Gait Assessment Gait Gait Assistance Required: Standby Assistance,Contact Guard Assist Distance (Feet) 75 Able to Maintain Weight Bearing Status Yes During Gait Assistive Devices Assistive Device Gait Belt,Front Wheeled Walker Orthotic/Prosthetic Devices or Brace: No Gait Deviations General Gait Pattern Antalgic,Decreased Feet Clearance Factors Limiting Gait Function Factors Limiting Gait Function Decreased Activity Tolerance, Decreased Strength,Limited Range of Motion,Pain,Poor Balance,Poor Safety Awareness Stair Climbing Assessment Evaluation Level of Assist On Stairs Contact Guard Assistance Devices Stair Climbing Assistive Devices Front Wheel Walker Technique/Endurance Stair Climbing Direction Ascend and Descend Stair Climbing Technique Step to Step Number of Steps Climbed 1 Query Text: Stair Climbing Set # Repetitions (reps) 2 PT-Balance Assessment Sitting Balance and Reactions Static Sitting Balance Ability Normal Dynamic Sitting Balance Ability Good Standing Balance and Reactions Static Standing Balance Ability Fair Dynamic Standing Balance Ability Fair Device Used FWW M5 PT-IP Objective Assessments Start: 07/23/23 13:49 Freq: NEEDED Status: Active Protocol: Document 07/23/23 12:55 AB (Rec: 07/23/23 14:03 AB [email or web address]) Orientation Orientation/Cognition Level of Alertness Alert Orientation Name,Place,Situation Language Function Ability No Deficits Noted Safety Awareness Decreased Safety Awareness Memory Description No Deficits Noted Gross Range of Motion Lower Extremity ROM Assessment Right Impaired Impairments R knee: 30-70 deg Strength Lower Extremity Strength Assessment Right Impaired Hip 4/5 Knee 4-/5 Coordination Assessment Gross Coordination Gross Coordination WNL Sensation Assessment Sensation Gross Sensation WNL Muscle Tone Muscle Tone WNL Yes M6 PT-IP Treatment Start: 07/23/23 13:49 Freq: NEEDED Status: Active Protocol: Document 07/23/23 12:55 AB (Rec: 07/23/23 14:03 AB [email or web address]) Physical Therapy Treatment Exercises Exercises Heel Slides Education Education Provided Precautions,Weight Bearing Status,Post-Op Packet,Safety M7 PT-IP Assessment and Plan Start: 07/23/23 13:49 Freq: NEEDED Status: Active Protocol: Document 07/23/23 12:55 AB (Rec: 07/23/23 14:03 AB [email or web address]) PT Summary Assessment and Plan Potential Rehabilitation Potential Good Status of Condition at Evaluation Stable Summary Impairments Pain,ROM,Strength,Balance, Coordination,Sensation,Tone, Cognition,Bed Mobility, Transfers,Gait,Activity Tolerance Assessment Summary pt is a 58 y/o M s/p R TKA POD0. Pt is WBAT on RLE. pt requiring SBA to CGA with mobility using FWW and plans to go home with daughter to assist him. pt has outpt PT set up. pt may go home when medically stable. Goals Bed Mobility Goal Independent Transfer Goal Independent,Front Wheeled Walker Gait Goal Independent,Front Wheel Walker Gait Distance 200 Other Goals improve transfers and ambulation using LRAD mod I 300 ft up/down 2 platform step using LRAD mod I Days to Meet Goals 5 Frequency of Treatment Frequency Of Treatment Twice a Day Treatment Plan Physical Therapy Treatment Plan Bed Mobility Training,Transfer Training,Gait Training, Therapeutic Exercise,Balance Retraining,Post Op Education, Discharge Planning,Hot or Cold Pack,Neuromuscular Re-ed, Coordination Retraining,Manual Therapy Weight Bearing Status Weight Bearing Status Weight Bear as Tolerated Allowed Weight Bearing Amount (enter % RLE WBAT or #) (%) Recommendations To Nursing Amount of Assist Needed 1 Person Assist Discharge Recommendations PT Discharge Recommendations Home with Assistance, Outpatient PT Transportation Needs at Discharge Private Vehicle
--- NOTE | 2023-07-23 16:37 | PM.PN.1 ---
Subjective Subjective Interval history: Patient seen postoperatively. He has ambulated with physical therapy without significant difficulty. He says he feels like he could have gone further. He did stair training. He is urinated. He has no significant pain at rest. He has a continuous cryotherapy device in place. His knee is currently resting in a position of 80? of flexion. He is able to extend it actively to approximately 5?. He has intact dorsiflexion and plantar flexion of his hallux and ankle. He is eager for discharge home. Detailed instructions were provided. Exam Vital Signs (past 8 hours): - 07/23/23 10:20 07/23/23 10:25 07/23/23 10:30 Temperature 98.2 F 98.1 F 98.2 F Pulse Rate 78 71 74 Respiratory Rate 13 14 16 Blood Pressure 107/69 98/64 108/68 Pulse Oximetry 92 97 94 Oxygen Delivery Method Room Air Room Air Room Air Oxygen Flow Rate 07/23/23 10:54 07/23/23 11:30 07/23/23 12:00 Temperature 97.9 F 97.9 F 97.9 F Pulse Rate 54 L 57 L 56 L Respiratory Rate 14 18 18 Blood Pressure 115/69 132/61 142/72 H Pulse Oximetry 96 97 97 Oxygen Delivery Method Oxygen Flow Rate 0 07/23/23 13:30 Temperature 97.9 F Pulse Rate 53 L Respiratory Rate 18 Blood Pressure 145/72 H Pulse Oximetry 97 Oxygen Delivery Method Oxygen Flow Rate Oxygen Delivery Method Room Air Oxygen Flow Rate 0 PFSH Medical History (Updated 07/17/23 @ 09:33 by Maye Watson RN) RBBB (right bundle branch block) LIVIA on CPAP Cancer of kidney (2021) HLD (hyperlipidemia) HTN (hypertension) Surgical History (Updated 07/17/23 @ 09:06 by Maye Watson RN) H/O right nephrectomy (10/2021) Hx of repair of right rotator cuff (12/18/20) Hx of appendectomy H/O vasectomy Family History (Updated 12/18/20 @ 07:22 by Andrea Kaminski MD) Other COPD (chronic obstructive pulmonary disease) Diabetes mellitus Social History household members: none Smoking Status: Never smoker alcohol intake: current
== END 2023-07-23 17:00 | disposition home or self-care (01) ==
LOC: OR 06:15 → AC 06:18
PROVIDERS: PCP Family Medicine; Referring Provider Family Medicine; Visit Provider Orthopaedic Surgery Adult Reconstructive Orthopaedic Surgery
PROC: 0SRC0JZ Replacement of Right Knee Joint with Synthetic Substitute, Open Approach (ICD-10-PCS; CPT 27447; principal; 2023-07-23 07:45)
DX: M17.11 Unilateral primary osteoarthritis, right knee (principal); M25.761 Osteophyte, right knee
CPT/HCPCS: 27447; 73560; 97116; 97161; C1776; J0690; J2250; J2704; J3010

== ENCOUNTER 2024-01-28 21:11 | Emergency (ER) | payer OTHER, SELFPAY ==
[2023-07-23 12:06] VITALS: BMI 36.6
[2024-01-28 21:14] VITALS: BP 177/82; PULSE 64; RESP 18; TEMP 36.9; O2SAT 94; BMI 36.6
--- NOTE | 2024-01-28 21:21 | ED_ITS ---
HPI - Skin/Abscess/Foreign Bdy General Chief complaint: Animal Bite Stated complaint: hand laceration Time Seen by Provider: 01/28/24 21:20 History of Present Illness HPI narrative: 58-year-old male presents for evaluation of dog bite to right hand. Patient states that he was playing with his dog, who is teeth caught skin and accidentally ripped. This is a family pet and up-to-date on vaccinations. Patient is not up-to-date on tetanus. Related Data Home Medications Medication Instructions Recorded Confirmed hydrochlorothiazide 12.5 mg tablet 12.5 mg PO QAM 07/17/23 07/23/23 atorvastatin 20 mg tablet 20 mg PO DAILY 07/23/23 07/23/23 losartan 100 mg tablet 100 mg PO DAILY 07/23/23 07/23/23 Previous Rx's Medication Instructions Recorded acetaminophen 325 mg tablet 650 mg (2 x 325 mg) PO Q6H #60 tabs 07/23/23 aspirin 81 mg tablet,delayed 81 mg PO BID #60 tabs 07/23/23 release amoxicillin 875 mg-potassium 1 tab PO Q12H #20 tabs 01/28/24 clavulanate 125 mg tablet Allergies Allergy/AdvReac Type Severity Reaction Status Date / Time No Known Drug Allergies Allergy Verified 07/23/23 06:40 Patient History Medical History RBBB (right bundle branch block) LIVIA on CPAP Cancer of kidney (2021) HLD (hyperlipidemia) HTN (hypertension) Surgical History H/O right nephrectomy (10/2021) Hx of repair of right rotator cuff (12/18/20) Hx of appendectomy H/O vasectomy Family History Other COPD (chronic obstructive pulmonary disease) Diabetes mellitus Social History household members: none Smoking Status: Never smoker alcohol intake: current Smoking Status: Never smoker alcohol intake frequency: a few times a month Substance Use Type: does not use Exam Initial Vital Signs Initial Vital Signs: Vital Signs Temperature 98.5 F 01/28/24 21:14 Pulse Rate 64 01/28/24 21:14 Respiratory Rate 18 01/28/24 21:14 Blood Pressure 177/82 H 01/28/24 21:14 Pulse Oximetry 94 01/28/24 21:14 Oxygen Delivery Method Room Air 01/28/24 21:14 Const: Awake, alert, no acute distress, nontoxic appearing MSK hand: No deformity, full flexion and extension of index finger Skin: Warm, Dry, semicircular laceration over dorsum of right hand centered around index finger Neuro: AO x3, CN II-XII grossly intact, moves all extremities Procedures Laceration Repair Laceration 1: Site: hand Side (If applicable): right Size (cm): 5 Description: flap and contaminated Depth: simple, single layer Local Anesthetic: lidocaine 1% Amount of anesthesia used (mL): 5 Pre-repair: wound explored and irrigated extensively Skin layer closed with: nylon Skin layer suture size: 4-0 Number of sutures: 4 Technique: simple, interrupted Course Orders Ordered: Discontinued Medications Diphtheria/Tetanus/Acell Pertussis (Tet,Diph,Pertuss(Acell),Vac/Pf 0.5 Ml Syringe) 0.5 ml IM .ONCE ONE Stop: 01/28/24 21:22 Last Admin: 01/28/24 21:28 Dose: 0.5 ml Documented By: SB Vital Signs Vital signs: Vital Signs - 8 hr 01/28/24 21:14 Temperature 98.5 F Pulse Rate 64 Respiratory Rate 18 Blood Pressure 177/82 H Pulse Oximetry 94 Oxygen Delivery Method Room Air MDM - Skin/Abscess/Foreign Bdy MDM Narrative Medical decision making narrative: Accidental dog bite to right index finger. Flap laceration of dorsum of right hand. No evidence of tendon involvement on exam. Wound copiously irrigated by nursing staff with Betadine and normal saline. Tetanus shot updated. Wound loosely approximated per procedure note. Dressing subsequently applied by nursing staff. Wound care instructions discussed with the patient. Antibiotics sent to pharmacy of choice. Discharge Plan Departure Patient Disposition: Home Clinical Impression: Dog bite Qualifiers: Encounter type: initial encounter Qualified Code(s): W54.0XXA - Bitten by dog, initial encounter Finger laceration Qualifiers: Encounter type: initial encounter Finger: index finger Damage to nail status: without damage Foreign body presence: without foreign body Laterality: right Qualified Code(s): S61.210A - Laceration without foreign body of right index finger without damage to nail, initial encounter Instructions: DI for Laceration Repair -- Finger, DI for Dog Bite Activity Restrictions/Additional Instructions: Your tetanus vaccine was updated today. There did not appear to be any tendon involvement when I explored the wound. Sutures will need to be in place for 5-7 days. Sutures may be removed in the ER, at urgent care, or primary care. Antibiotics have been sent to [facility] in [place]. Please finish all of your medications even if you are feeling better. Prescriptions: New amoxicillin-pot clavulanate 875-125 mg tablet 1 tab PO Q12H Qty: 20 0RF No Action hydrochlorothiazide 12.5 mg Tablet 12.5 mg PO QAM atorvastatin 20 mg tablet 20 mg PO DAILY losartan 100 mg tablet 100 mg PO DAILY acetaminophen 325 mg Tablet 650 mg PO Q6H Qty: 60 0RF aspirin 81 mg Tablet,Delayed Release (Dr/Ec) 81 mg PO BID Qty: 60 0RF Referrals: Roscoe Coleman MD [Primary Care Provider] - Stand Alone Forms: Patient Portal/API
[2024-01-28] MEDS: TET,DIPH,PERTUSS(ACELL),VAC/PF 0.5 ML SYRINGE IM (21:28)
--- NOTE | 2024-01-28 22:25 | PC.NURSE ---
Wrapped wound in gauze and kerlix, bleeding controlled.
[2024-01-28 22:31] VITALS: BP 148/70; PULSE 67; RESP 18; O2SAT 93
== END 2024-01-28 22:34 | disposition home or self-care (01) ==
PROVIDERS: Emergency Provider Emergency Medicine; PCP Family Medicine
DX: S61.451A Open bite of right hand, initial encounter (principal); W54.0XXA Bitten by dog, initial encounter; Z23 Encounter for immunization
CPT/HCPCS: 12002; 90471; 99283; 90715